=== PATIENT | female | born 2000 | race Caucasian/White ===

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

== ENCOUNTER 2018-05-15 05:47 | Inpatient (IN) | payer OTHER ==
--- NOTE | 2018-05-14 20:11 | P.HPOB ---
History of Present Illness H&P Date: 05/14/18 Chief Complaint: Induction of labor This is a 17-year-old female 1 para 0 with an estimated date of confinement of 05/18/2018, estimated gestational age of 39-4/7 weeks, who presents to labor and delivery for induction of labor. She admits to good movement. She has been followed by maternal medicine during this due to echogenic focus in the left heart. Her latest ultrasounds did not appreciate the echogenic focus. She has been getting twice weekly nonstress tests. She denies any regular contractions but does complain of pressure. labs GC/Chlamydia-negative Random glucose-79 Hemoglobin-11 Hepatitis B surface antigen-negative and reactive Rubella-immune Syphilis antibody-negative nonreactive HIV-nonreactive Toxoplasma-negative Blood type-A+ Antibody screen-negative One hour Glucola-132 Three-hour Glucola-within normal limits Group B streptococcus-negative Obstetrical ultrasound-left ventricle EIF, approximately 8-9 cm right ovarian cyst Obstetrical history: . Gynecologic history: No history of sexual transmitted diseases. Social history: She is single. She works part-time. Review of Systems Constitutional: Denies chills, Denies fever Eyes: denies blurred vision, denies pain Ears, nose, mouth and throat: Denies headache, Denies sore throat Cardiovascular: Denies chest pain, Denies shortness of breath Respiratory: Denies cough Gastrointestinal: Denies abdominal pain, Denies diarrhea, Denies nausea, Denies vomiting Genitourinary: Reports pelvic pain, Reports Musculoskeletal: Reports low back pain Integumentary: Denies pruritus, Denies rash Neurological: Denies numbness, Denies weakness Psychiatric: Denies anxiety, Denies depression Past Medical History Additional Past Medical History / Comment(s): Right ovarian cyst Past Surgical History: No Surgical Hx Reported Past Psychological History: No Psychological Hx Reported Smoking Status: Never smoker Past Drug Use History: None Reported Medications and Allergies Allergies Allergy/AdvReac Type Severity Reaction Status Date / Time No Known Allergies Allergy Verified 05/14/18 20:09 Exam Osteopathic Statement: *. No significant issues noted on an osteopathic structural exam other than those noted in the History and Physical/Consult. HEENT: Within normal limits Heart: Regular rate and rhythm Lungs: Clear to auscultation bilaterally Abdomen: with fundal height of 38 cm Pelvic exam: Cervix is 1.5 cm/60%/anus 2 station heart tones: 140s, reactive Extremities: Negative Homans Assessment and Plan (1) 39 weeks gestation of Status: Acute Code(s): Z3A.39 - 39 WEEKS GESTATION OF SNOMED Code( s): 26633073 Plan: Proceed with oxytocin induction of labor. Expectant management. Epidural anesthesia if desired.
[2018-05-15] MEDS ORDERED: CARBOPROST TROMETHAMINE 250 MCG/ML 1 ML AMP IM PRN (06:02)
[2018-05-15] MEDS ORDERED: LIDOCAINE 1% (PF) 10 MG/ML (30 ML SDV) SQ PRN (06:02)
[2018-05-15] MEDS ORDERED: LIDOCAINE 1% 20 ML VIAL (10MG/ML) FOR IV START INTRADERMA PRN (06:02)
[2018-05-15] MEDS ORDERED: METHYLERGONOVINE 0.2 MG/ML 1 ML AMP IM PRN (06:02)
[2018-05-15] MEDS ORDERED: TERBUTALINE 1 MG/ML VIAL SQ PRN (06:02)
[2018-05-15] MEDS ORDERED: OXYTOCIN 20 UNITS/1000 ML NS 1,000 ML IV SCH (06:02)
[2018-05-15] MEDS ORDERED: OXYTOCIN 10 UNIT/ML 1 ML VIAL IM PRN (06:02)
[2018-05-15] MEDS: LACTATED RINGERS 1,000 ML IV SCH ×4 (06:09→23:04)
[2018-05-15 06:25] VITALS: RESP 16; BMI 41.8
[2018-05-15 06:30] LABS: Anisocytosis Slight; Basophils % (A) 0 %; Eosinophils # (A) 0.1 k/uL (0-0.7); Eosinophils % (A) 1 %; HCT 36.4 % (34.0-46.0); HGB 11.7 gm/dL (11.4-16.0); Hypochromasia Slight; Lymphocytes # (A) 2.5 k/uL (1.0-4.8); Lymphocytes % (A) 26 %; MCH 24.7 pg (25.0-35.0); MCV 77.1 fL (80.0-100.0); Mean Platelet Volume 6.8; Microcytosis Slight; Monocytes # (A) 0.5 k/uL (0-1.0); Monocytes % (A) 5 %; Neutrophils # (A) 6.2 k/uL (1.3-7.7); Neutrophils % (A) 65 %; Platelet Count 218 k/uL (150-450); RBC 4.73 m/uL (3.80-5.40); RDW 17.5 % (11.5-15.5); WBC 9.7 k/uL (4.0-11.0)
[2018-05-15] MEDS: BUTORPHANOL 1 MG/ML 1 ML VIAL IV PRN ×2 (10:18→12:25)
[2018-05-15] MEDS ORDERED: BUPIVACAINE (PF) 0.25% 30 ML VIAL ONE (15:25)
[2018-05-15] MEDS ORDERED: fentaNYL (PF) 50 MCG/ML 5 ML AMP ONE (15:25)
[2018-05-15] MEDS ORDERED: SODIUM CHLORIDE 0.9% 100 ML BAG ONE (15:25)
--- NOTE | 2018-05-16 00:39 | P.PROBDLV ---
Vaginal Delivery Note - . Vaginal Delivery Note: Patient received an epidural at approximately 3 cm and then progressed to complete dilation with oxytocin induction of labor. Once reaching complete, she began pushing. Baby was noted to have some variable decelerations during pushing. She was able to push baby to a crown. With one further push, the baby 's head delivered across the perineum in a right occiput posterior lie. Nose and mouth were bulb suctioned at the perineum and nuchal cord times one was reduced around the 's head. The nuchal cord was noted to be loose. With one further push, the remainder the easily delivered and was placed on mother's abdomen. Nose and mouth were bulb suctioned. Cord was clamped and cut. Infant was taken to warmer for evaluation by nursing staff. Terminal meconium was noted. A viable male is noted with scores of 4 at 1 minute and 7 at 5 minutes and weight of 6 lbs. 10 oz. Placenta delivered shortly thereafter, intact, with a three-vessel cord. Uterus contracted well after oxytocin was given and uterine massage was carried out. Inspection of the perineum revealed a second-degree perineal laceration. This area was anesthetized with 1% lidocaine and then sutured with 30 and 2-0 Vicryl suture in the usual multilayer fashion. Estimated blood loss is approximately 200 mL's. Mother is in stable condition and the infant went to level I nursery for evaluation.
[2018-05-16] MEDS ORDERED: ZOLPIDEM 5 MG TAB PO PRN (00:53)
[2018-05-16] MEDS ORDERED: WITCH HAZEL 1 EACH MED..PAD TOPICAL PRN (00:53)
[2018-05-16] MEDS ORDERED: diphenhydrAMINE 25 MG CAP PO PRN (00:53)
[2018-05-16] MEDS ORDERED: HYDROCORTISONE 2.5% RECTAL CREAM 30 GM TUBE RECTAL PRN (00:53)
[2018-05-16] MEDS ORDERED: LANOLIN CREAM 5 GM TUBE TOPICAL PRN (00:53)
[2018-05-16] MEDS ORDERED: diphenhydrAMINE 50 MG/ML 1 ML VIAL IVP PRN ×2 (00:53)
[2018-05-16] MEDS ORDERED: SIMETHICONE 80 MG CHEWABLE PO PRN (00:53)
[2018-05-16] MEDS ORDERED: ACETAMINOPHEN TAB 325 MG TAB PO PRN (00:53)
[2018-05-16] MEDS ORDERED: BENZOCAINE/MENTHOL SPRAY 1 GM/SPRAY AEROSOL TOPICAL PRN (00:53)
[2018-05-16] MEDS ORDERED: OXYTOCIN 20 UNITS/1000 ML NS 1,000 ML IV SCH (00:53)
[2018-05-16] MEDS ORDERED: diphenhydrAMINE 50 MG CAP PO PRN (00:53)
[2018-05-16] MEDS: IBUPROFEN 600 MG TAB PO PRN ×3 (01:05→15:03)
[2018-05-16] MEDS: SENNOSIDES-DOCUSATE SODIUM 1 EACH TAB PO SCH ×2 (02:08→08:07)
[2018-05-16 05:49] LABS: Anisocytosis Slight; Basophils % (A) 0 %; Eosinophils # (A) 0.1 k/uL (0-0.7); Eosinophils % (A) 0 %; HCT 32.8 % (34.0-46.0); HGB 10.7 gm/dL (11.4-16.0); Hypochromasia Slight; Lymphocytes # (A) 1.2 k/uL (1.0-4.8); Lymphocytes % (A) 6 %; MCHC 32.7 g/dL (31.0-37.0); MCV 76.5 fL (80.0-100.0); Mean Platelet Volume 7.9; Microcytosis Slight; Monocytes # (A) 1.2 k/uL (0-1.0); Monocytes % (A) 7 %; Neutrophils % (A) 85 %; Platelet Count 209 k/uL (150-450); RBC 4.28 m/uL (3.80-5.40); RDW 17.7 % (11.5-15.5); WBC 18.7 k/uL (4.0-11.0)
[2018-05-16 12:48] VITALS: BP 135/64; PULSE 85; TEMP 98.3
== END 2018-05-16 15:30 | disposition home or self-care (01) | DRG 775 ==
LOC: 4FBP 05:47
PROVIDERS: ADMIT Obstetrics & Gynecology; ATTEND Obstetrics & Gynecology
PROC: 10E0XZZ Delivery of Products of Conception, External Approach (ICD-10-PCS; principal; 2018-05-15)
PROC: 0KQM0ZZ Repair Perineum Muscle, Open Approach (ICD-10-PCS; 2018-05-15)
PROC: 00HU33Z Insertion of Infusion Device into Spinal Canal, Percutaneous Approach (ICD-10-PCS; 2018-05-15)
PROC: 3E0R3BZ Introduction of Anesthetic Agent into Spinal Canal, Percutaneous Approach (ICD-10-PCS; 2018-05-15)
DX: O69.81X0 Labor and delivery complicated by cord around neck, without compression, not applicable or unspecified (principal); O77.0 Labor and delivery complicated by meconium in amniotic fluid; O70.1 Second degree perineal laceration during delivery; O76 Abnormality in fetal heart rate and rhythm complicating labor and delivery; O34.83 Maternal care for other abnormalities of pelvic organs, third trimester; Z37.0 Single live birth; Z3A.39 39 weeks gestation of pregnancy
CPT/HCPCS: 85025; 88307